=== PATIENT | male | born 1955 | race Caucasian/White ===

== ENCOUNTER 2017-11-12 22:01 | Observation (INO) | payer MEDICAID, OTHER ==
[2017-11-12] MEDS ORDERED: ONDANSETRON HCL MDV 20ML 2 MG/ML VIAL ONE (22:30)
[2017-11-12] MEDS ORDERED: MORPHINE SULFATE 4 MG/1ML SYG ONE ×2 (22:31→23:46)
[2017-11-12 22:33] LABS: BASOPHILS % (AUTO) 0.2 % (0.0-5.0); EOSINOPHILS % (AUTO) 0.1 % (0.0-8.0); HEMATOCRIT 43.5 % (42-54); LYMPHOCYTES % (AUTO) 3.6 % (21.0-51.0); MEAN CORPUSCULAR HEMOGLOBIN 29.5 pg (27.0-33.0); MEAN CORPUSCULAR HGB CONC 33.9 g/dL (32.0-36.0); MONOCYTES % (AUTO) 2.6 % (3.0-13.0); NEUTROPHILS % (AUTO) 93.5 % (40.0-77.0); PLATELET COUNT (AUTO) 198 K/uL (130-400); WHITE BLOOD COUNT (AUTO) 16.1 K/uL (4.8-10.8)
[2017-11-12 22:41] LABS: APPEARANCE,URINE Clear (CLEAR); BILIRUBIN,URINE Negative (NEGATIVE); COLOR,URINE Yellow (YELLOW); GLUCOSE, URINE (UA) >=1000 mg/dL (NEGATIVE); KETONES,URINE 15 mg/dL (NEGATIVE); LEUKOCYTE ESTERASE ,URINE Negative (NEGATIVE); NITRATE,URINE Negative (NEGATIVE); OCCULT BLOOD,URINE Negative (NEGATIVE); PROTEIN,URINE Negative (NEGATIVE); UROBILINOGEN,URINE 0.2 mg/dL (0.2-1.0)
[2017-11-12 22:47] LABS: CREATININE 1.8 mg/dL (0.5-1.5); POTASSIUM 4.6 mmol/L (3.5-5.1)
[2017-11-12 22:51] LABS: ALBUMIN 4.3 g/dL (3.5-5.0); BILIRUBIN,TOTAL 0.4 mg/dL (0.2-1.0); TOTAL PROTEIN, SERUM 7.8 g/dL (6.0-8.3)
[2017-11-12 23:00] LABS: BACTERIA,URINE Rare /HPF (None Seen); RBC,URINE 0-1 /HPF (0-1); SQUAMOUS EPITHELIAL CELL,UR 0-2 /HPF (0-2); WBC,URINE 0-1 /HPF (0-1)
[2017-11-13] MEDS ORDERED: SODIUM CHLORIDE 0.9% 1000ML 1,000 ML IV SCH (01:26)
[2017-11-13] MEDS ORDERED: POTASSIUM CHLORIDE 10% ELIXIR 20 MEQ/15 ML UDCUP PO PRN (01:30)
[2017-11-13] MEDS ORDERED: LIDOCAINE HCL-MPF 1% 2ML VIAL IVP PRN (01:30)
[2017-11-13] MEDS ORDERED: ONDANSETRON HCL 4 MG/2 ML VIAL IV PRN (01:30)
[2017-11-13] MEDS ORDERED: MORPHINE SULFATE 2 MG/ML 1ML SYG IV PRN (01:30)
[2017-11-13] MEDS ORDERED: ACETAMINOPHEN 325 MG TAB PO PRN ×2 (01:30)
[2017-11-13] MEDS ORDERED: POTASSIUM CHLORIDE 20 MEQ ERTAB PO PRN (01:30)
[2017-11-13] MEDS ORDERED: POTASSIUM CHLORIDE 20MEQ/100ML 100 ML IV PRN (01:30)
[2017-11-13] MEDS ORDERED: HYDRALAZINE HCL 20 MG/ML VIAL IV PRN (01:30)
[2017-11-13] MEDS ORDERED: SODIUM CHLORIDE 0.9% 1000ML 1,000 ML IV ONE (02:08)
[2017-11-13 08:25] LABS: POTASSIUM 4.8 mmol/L (3.5-5.1)
[2017-11-13] MEDS ORDERED: FAMOTIDINE 20MG TAB 20 MG TAB ONE (08:36)
[2017-11-13] MEDS ORDERED: FAMOTIDINE 20MG TAB 20 MG TAB PO SCH (09:00)
== END 2017-11-13 15:08 | disposition home or self-care (01) ==
LOC: EDH 22:01 → EDHIP 11-13 00:15
PROVIDERS: ADMIT Internal Medicine; ATTEND Internal Medicine
DX: N13.2 Hydronephrosis with renal and ureteral calculous obstruction (principal); I25.2 Old myocardial infarction; E78.5 Hyperlipidemia, unspecified; I25.10 Atherosclerotic heart disease of native coronary artery without angina pectoris; N28.9 Disorder of kidney and ureter, unspecified; Z87.442 Personal history of urinary calculi; Z95.5 Presence of coronary angioplasty implant and graft; Z88.0 Allergy status to penicillin; Z84.1 Family history of disorders of kidney and ureter
CPT/HCPCS: 36415 ×2; 74176; 80048; 80053; 81001; 85025; 99285; G0378 ×15; J2270 ×2; J7030

== ENCOUNTER 2021-11-18 05:55 | Day surgery (SDC) | payer MEDICARE ==
[2021-11-16 09:02] LABS: BASOPHILS % (AUTO) 0.7 % (0.0-5.0); HEMATOCRIT 47.6 % (42-54); LYMPHOCYTES % (AUTO) 19.7 % (21.0-51.0); MEAN CORPUSCULAR HEMOGLOBIN 29.6 pg (27.0-33.0); MEAN CORPUSCULAR VOLUME 89.6 fL (79-99); MONOCYTES % (AUTO) 7.6 % (3.0-13.0); NEUTROPHILS % (AUTO) 69.7 % (40.0-77.0); PLATELET COUNT (AUTO) 200 K/uL (130-400); RED BLOOD CELL COUNT(AUTO) 5.31 MIL/uL (4.50-6.20); RED CELL DISTRIBUTION WIDTH 12.8 % (11.0-15.5); WHITE BLOOD COUNT (AUTO) 6.8 K/uL (4.8-10.8)
[2021-11-16 09:21] LABS: ALBUMIN 4.2 g/dL (3.5-5.0); APPEARANCE,URINE Clear (CLEAR); BILIRUBIN,DIRECT 0.2 mg/dL (0.0-0.3); BILIRUBIN,TOTAL 0.6 mg/dL (0.2-1.0); BILIRUBIN,URINE Negative (NEGATIVE); COLOR,URINE Yellow (YELLOW); CREATININE 1.3 mg/dL (0.5-1.5); GLUCOSE, URINE (UA) TRACE mg/dL (NEGATIVE); KETONES,URINE Negative (NEGATIVE); LEUKOCYTE ESTERASE ,URINE Negative (NEGATIVE); NITRATE,URINE Negative (NEGATIVE); OCCULT BLOOD,URINE Negative (NEGATIVE); POTASSIUM 4.4 mmol/L (3.5-5.1); PROTEIN,URINE Negative (NEGATIVE); TOTAL PROTEIN, SERUM 7.6 g/dL (6.0-8.3); UROBILINOGEN,URINE 0.2 mg/dL (0.2-1.0)
[2021-11-16 09:25] LABS: BACTERIA,URINE Rare /HPF (None Seen); PROTHROMBIN TIME 10.9 SEC (9.6-11.6); RBC,URINE 0-1 /HPF (0-1); SQUAMOUS EPITHELIAL CELL,UR Rare /HPF (0-2); WBC,URINE 0-1 /HPF (0-1)
[2021-11-16 09:26] LABS: PARTIAL THROMBOPLASTIN TIME 26.6 SEC (26.3-35.5)
[2021-11-16 09:33] LABS: B-TYPE NATRIURETIC PEPTIDE 46 pg/mL (0-100)
[2021-11-17 09:12] VITALS: BP 159/82
[~2021-11-18] VITALS: Ht 177.8 cm; Wt 91.8 kg
[2021-11-18] VITALS (10 sets, daily range): BP systolic 125–145; BP diastolic 72–85
[~2021-11-18 05:55] MED LIST: 0.9% NACL 500ML IV.SOLN 500 ML IV SCH; ATOR10 PO; METO25TA6 PO
[2021-11-18] MEDS ORDERED: 0.9%NACL 1000ML 1,000 ML IV ONE (06:13)
[2021-11-18] MEDS ORDERED: NITROGLYCERIN 50MG VIAL ONE (07:23)
[2021-11-18] MEDS ORDERED: FENTANYL CITRATE PF 50 MCG/1 ML 2ML VIAL ONE (07:24)
[2021-11-18] MEDS ORDERED: MIDAZOLAM HCL 1 MG/ML 2ML VIAL ONE (07:24)
[2021-11-18] MEDS ORDERED: BIVALIRUDIN 250 MG/VIAL IV ONE (07:25)
[2021-11-18] MEDS ORDERED: HEPARIN 10,000 UNIT/10ML (1,000 UNIT/ML) VIAL ONE (07:25)
[2021-11-18] MEDS ORDERED: LIDOCAINE HCL 400MG/20ML VIAL ONE (07:26)
[2021-11-18] MEDS ORDERED: IOHEXOL-350 50ML VIAL IV ONE (07:31)
[2021-11-18] MEDS ORDERED: IOHEXOL 350 MG/ML 100ML INFUS..BTL IV ONE (07:31)
[2021-11-18] MEDS ORDERED: DEXTROSE 50%-WATER 50 ML DISP.SYRIN IV PRN (08:30)
[2021-11-18] MEDS ORDERED: 0.9%NACL 1000ML 1,000 ML IV SCH (08:30)
[2021-11-18] MEDS ORDERED: GLUCAGON 1MG KIT 1 MG ML IM PRN (08:30)
[2021-11-18] MEDS ORDERED: HYDRALAZINE 20MG/ML VIAL IV PRN (08:30)
[2021-11-18] MEDS ORDERED: NITROGLYCERIN 0.4 MG SL TAB SL PRN (08:30)
== END 2021-11-18 12:30 | disposition home or self-care (01) ==
LOC: DAH 05:55
PROVIDERS: ATTEND Internal Medicine Cardiovascular Disease
DX: I25.119 Atherosclerotic heart disease of native coronary artery with unspecified angina pectoris (principal); I25.719 Atherosclerosis of autologous vein coronary artery bypass graft(s) with unspecified angina pectoris; I25.82 Chronic total occlusion of coronary artery; E78.5 Hyperlipidemia, unspecified; I25.2 Old myocardial infarction; E66.3 Overweight; K21.9 Gastro-esophageal reflux disease without esophagitis; Z79.82 Long term (current) use of aspirin; Z79.01 Long term (current) use of anticoagulants; Z79.899 Other long term (current) drug therapy; Z95.5 Presence of coronary angioplasty implant and graft; Z68.28 Body mass index [BMI] 28.0-28.9, adult; Z98.890 Other specified postprocedural states; Z90.89 Acquired absence of other organs; Z83.3 Family history of diabetes mellitus; Z88.0 Allergy status to penicillin; Z72.89 Other problems related to lifestyle
CPT/HCPCS: 36415; 71045; 80048; 80061; 80076; 81001; 82948 ×2; 83880; 85025; 85610; 85730; 93005; 93459; A4215; A4216; A4221; A4222; A4223 ×3; A4606; A4663; C1760 ×2; C1769; C1894 ×2; J1644; J2250; J3010; J3490 ×2; J7030; Q9965 ×2; Q9967 ×2; 99156; 99157; J0583

== ENCOUNTER → 2023-12-12 | Outpatient (CLI) | payer MEDICARE ==
[~2023-12-12] MED LIST changes: -0.9% NACL 500ML IV.SOLN 500 ML IV SCH; +AEC81 PO; -ATOR10 PO; +DAPA5TAB PO; +PRED20B PO
[2023-12-12 12:39] LABS: ALBUMIN 3.2 g/dL (3.5-5.0); BILIRUBIN,DIRECT 0.2 mg/dL (0.0-0.3); BILIRUBIN,TOTAL 0.8 mg/dL (0.2-1.0); TOTAL PROTEIN, SERUM 7.6 g/dL (6.0-8.3)
== END | disposition home or self-care (01) ==
LOC: LAB 09:08
PROVIDERS: ATTEND Internal Medicine Cardiovascular Disease
DX: I25.10 Atherosclerotic heart disease of native coronary artery without angina pectoris (principal)
CPT/HCPCS: 36415; 80061; 80076; 82550